=== PATIENT | female | born 1960 | race Caucasian/White ===

== ENCOUNTER 2018-11-19 09:03 | Outpatient (REF) | payer OTHER, SELFPAY ==
[2018-11-19 21:36] LABS: TSH (W/Ref FT4) 2.46 uIU/mL (0.36-3.74)
== END 2018-11-19 09:23 ==
LOC: NCHCN 09:03
PROVIDERS: PCP Nurse Practitioner Family; Visit Provider Nurse Practitioner Family
DX: E03.9 Hypothyroidism, unspecified (principal)
CPT/HCPCS: 84443

== ENCOUNTER 2019-10-18 09:53 | Outpatient (REF) | payer OTHER, SELFPAY ==
[2019-10-18 22:56] LABS: Calculated LDL 155 mg/dL (<100); Cholesterol 223 mg/dL (<200); HDL Cholesterol 46 mg/dL (40-60); Magnesium 2.2 mg/dL (1.8-2.4); TSH 0.34 uIU/mL (0.36-3.74); Triglyceride 114 mg/dL (<150); Vitamin B12 374 pg/mL (193-986)
== END 2019-10-18 10:13 ==
LOC: NCHCN 09:53
PROVIDERS: PCP Nurse Practitioner Family; Visit Provider Nurse Practitioner Family
DX: Z00.00 Encounter for general adult medical examination without abnormal findings (principal); E03.9 Hypothyroidism, unspecified
CPT/HCPCS: 80061; 82607; 83735; 84443

== ENCOUNTER 2020-02-07 14:04 | Outpatient (REF) | payer OTHER, SELFPAY ==
[2020-02-07 21:50] LABS: TSH (W/Ref FT4) 0.32 uIU/mL (0.36-3.74)
[2020-02-07 22:12] LABS: FREE T4 1.42 ng/dL (0.76-1.46)
== END 2020-02-07 14:24 ==
LOC: NCHCN 14:04
PROVIDERS: PCP Nurse Practitioner Family; Visit Provider Nurse Practitioner Family
DX: E03.9 Hypothyroidism, unspecified (principal)
CPT/HCPCS: 84439; 84443

== ENCOUNTER 2020-06-21 16:16 | Outpatient (REF) | payer OTHER, SELFPAY ==
[2020-06-21 19:37] LABS: TSH (W/Ref FT4) 3.22 uIU/mL (0.36-3.74)
== END 2020-06-21 16:17 | disposition home or self-care (01) ==
LOC: NCHCN 16:16
PROVIDERS: PCP Nurse Practitioner Family; Visit Provider Nurse Practitioner Family
DX: E03.9 Hypothyroidism, unspecified (principal)
CPT/HCPCS: 84443

== ENCOUNTER 2020-08-23 10:35 | Outpatient (REF) | payer OTHER, SELFPAY ==
[2020-08-23 13:19] LABS: Abs Immature Grans 0.02 10^3/uL (0.0-0.06); Absolute Basophil Count 0.05 10^3/uL (0.0-0.2); Absolute Eosinophil Count 0.12 10^3/uL (0.0-0.7); Absolute Lymphocyte Count 1.84 10^3/uL (1.2-3.4); Absolute Monocyte Count 0.43 10^3/uL (0.1-0.8); Absolute Neutrophil Count 4.11 10^3/uL (1.2-6.7); Basophils % 0.8; Eosinophils % 1.8; HCT 43.4 % (36.0-46.0); HGB 14.1 g/dL (11.2-15.7); Immature Grans % 0.3; MCH 33.3 pg (27.0-33.0); MCHC 32.5 % (32.0-36.0); MCV 102.4 fL (80-95); Monocytes % 6.5; Neutrophils % 62.6; Nucleated RBC 0 %; Platelet Count 217 10^3/uL (130-400); RBC 4.24 10^6/uL (3.93-5.22); RDW 13.3 % (11.7-14.6); RDW-SD 50.2 fL; WBC 6.57 10^3/uL (4.4-10.8)
[2020-08-23 13:37] LABS: ALT 27 U/L (14-59); AST 21 U/L (15-37); Albumin 4.3 g/dL (3.4-5.0); Alkaline Phosphatase 100 U/L (46-116); Anion Gap 7.6 mmol/L (3-11); BUN 17 mg/dL (7-18); Bilirubin, Total 0.2 mg/dL (0.2-1.0); CO2 30.4 mmol/L (21.0-32.0); CREATININE 1.1 mg/dL (0.55-1.02); Calcium 9.5 mg/dL (8.5-10.1); Chloride 106 mmol/L (98-107); Estimated GFR 50.67 (mL/min/1.73m2); Glucose 83 mg/dL (74-106); Potassium 5.1 mmol/L (3.5-5.1); Sodium 144 mmol/L (136-145); TSH 11.73 uIU/mL (0.36-3.74); Total Protein 7.6 g/dL (6.4-8.2)
== END 2020-08-23 10:36 | disposition home or self-care (01) ==
LOC: NCHCN 10:35
PROVIDERS: PCP Nurse Practitioner Family; Visit Provider Nurse Practitioner Family
DX: R42 Dizziness and giddiness (principal); E03.9 Hypothyroidism, unspecified
CPT/HCPCS: 80053; 84443; 85025

== ENCOUNTER 2020-09-27 15:05 | Outpatient (REF) | payer OTHER, SELFPAY ==
[2020-09-27 15:18] LABS: BUN 19 mg/dL (7-18); Chloride 106 mmol/L (98-107); Estimated GFR 56.56 (mL/min/1.73m2); Glucose 79 mg/dL (74-106); Potassium 4.3 mmol/L (3.5-5.1); Sodium 144 mmol/L (136-145); TSH 2.63 uIU/mL (0.36-3.74)
== END 2020-09-27 15:06 | disposition home or self-care (01) ==
LOC: NCHCN 15:05
PROVIDERS: PCP Nurse Practitioner Family; Visit Provider Nurse Practitioner Family
DX: E03.9 Hypothyroidism, unspecified (principal); R94.4 Abnormal results of kidney function studies
CPT/HCPCS: 80048; 84443

== ENCOUNTER 2021-01-07 14:05 | Outpatient (REF) | payer OTHER, SELFPAY ==
[2021-01-07 17:05] LABS: Calculated LDL 150 mg/dL (<100); Cholesterol 221 mg/dL (<200); HDL Cholesterol 48 mg/dL (40-60); Triglyceride 117 mg/dL (<150)
[2021-01-07 17:09] LABS: Hemoglobin A1C 5.4 % (<5.7)
== END 2021-01-07 14:06 | disposition home or self-care (01) ==
LOC: NCHCN 14:05
PROVIDERS: PCP Nurse Practitioner Family; Visit Provider Nurse Practitioner Family
DX: E03.9 Hypothyroidism, unspecified (principal); Z00.00 Encounter for general adult medical examination without abnormal findings
CPT/HCPCS: 80061; 83036

== ENCOUNTER 2024-01-21 12:21 | Outpatient (REF) | payer OTHER, SELFPAY ==
[2024-01-21 15:49] LABS: TSH (W/Ref FT4) 1.68 uIU/mL (0.36-3.74)
== END 2024-01-21 12:22 | disposition home or self-care (01) ==
LOC: NCHCN 12:21
PROVIDERS: PCP Nurse Practitioner Family; Visit Provider Family Medicine
DX: E03.9 Hypothyroidism, unspecified (principal)
CPT/HCPCS: 84443